=== PATIENT | male | born 2000 | race Caucasian/White ===

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

== ENCOUNTER 2021-01-14 22:10 | Emergency (ER) | payer BC ==
[2021-01-15 12:37] LABS: SARS-CoV-2 PCR by NAA Not Detected (NotDetected)
== END 2021-01-14 22:51 | disposition home or self-care (01) ==
LOC: ERS 22:10
DX: R43.0 Anosmia (principal); R50.9 Fever, unspecified; J34.89 Other specified disorders of nose and nasal sinuses; J02.9 Acute pharyngitis, unspecified; R06.02 Shortness of breath; Z20.822 Contact with and (suspected) exposure to COVID-19
CPT/HCPCS: 99284; U0003; U0005